=== PATIENT | male | born 1995 | race Caucasian/White ===

== ENCOUNTER 2023-10-15 20:04 | Emergency (ER) | payer OTHER ==
[~2023-10-15] VITALS: Ht 193 cm; Wt 93.0 kg
[2023-10-15] MEDS ORDERED: LIDOCAINE 1% INJ 50 ML MDV IJ ONE (20:59)
[2023-10-15 21:34] VITALS: BP 134/77; TEMP 98.8; O2SAT 100
== END 2023-10-15 21:35 | disposition home or self-care (01) ==
LOC: ER 20:07
DX: S61.216A Laceration without foreign body of right little finger without damage to nail, initial encounter (principal); W26.8XXA Contact with other sharp object(s), not elsewhere classified, initial encounter; Y93.89 Activity, other specified; Y92.89 Other specified places as the place of occurrence of the external cause; Y99.8 Other external cause status
CPT/HCPCS: 12002; 99282; J3490